=== PATIENT | male | born 1970 | race Caucasian/White ===

== ENCOUNTER 2018-02-14 11:12 | Emergency (ER) | END 2018-02-14 14:00 | disposition home or self-care (01) ==

== ENCOUNTER 2019-02-01 16:03 | Emergency (ER) | payer SELFPAY ==
[~2019-02-01] VITALS: Wt 65.0 kg
[~2019-02-01 16:03] MED LIST: FLUT9.9S NASAL; IBUP-1542 PO
[2019-02-01] MEDS ORDERED: SOD CHLORIDE 0.9% 1,000 ML IV STA (17:48)
--- NOTE | 2019-02-01 18:57 | ERD ---
ER Documentation Chief Complaint Chief Complaint weak, pale, sleepy 'after taking BP med he normally does not take' HPI This is a 48-year old man who is here because he took his girlfriends beta- edna because he thought he might have high blood pressure because she does. He has no prior history of hypertension at all. He said he took the medication and then 20 minutes later he started feeling weak and dizzy. His friend who was with him said that he looked a bit pale while they were in the car together so they went home. He said when they got home the patient threw up once that was nonbilious and nonbloody. The patient here states he feels much better. He had no chest pain no shortness of breath no headache no focal neurological complaints no abdominal pain. ROS All systems reviewed and are negative except as per history of present illness. Medications Home Meds Active Scripts Fluticasone Propionate (Flonase Allergy Relief) 9.9 Ml [place].susp, 1 SPRAY NASAL BID, #1 BOTTLE TO EACH NOSTRIL Prov:IVIS BARBA MD 02/14/18 Ibuprofen* (Motrin*) 600 Mg Tab, 600 MG PO Q6H PRN for PAIN AND OR ELEVATED TEMP, #30 TAB Prov:IVIS BARBA MD 02/14/18 Allergies Allergies: Coded Allergies: amoxicillin (Unverified Allergy, Unknown, HIVES, 02/14/18) clavulanic acid (Unverified Allergy, Unknown, HIVES, 02/14/18) PMhx/Soc History of Surgery: No Anesthesia Reaction: No Hx Neurological Disorder: No Hx Respiratory Disorders: No Hx Cardiac Disorders: Yes (HTN) Hx Psychiatric Problems: No Hx Alcohol Use: No Hx Substance Use: Yes (MARIJUANA) Hx Tobacco Use: No Smoking Status: Never smoker FmHx Family History: No coronary disease Physical Exam Vitals Vital Signs Date Temp Pulse Resp B/P (MAP) Pulse Ox O2 O2 Flow FiO2 Time Delivery Rate 02/01/19 66 15 114/75 100 Room Air 18:35 (88) 02/01/19 58 12 120/83 100 Room Air 17:40 (95) 02/01/19 100 17:40 02/01/19 97.0 70 22 105/54 97 16:12 (71) Physical Exam Const: Well-developed, well-nourished Head: Atraumatic, normocephalic Eyes: Normal Conjunctiva, PERRLA, EOMI, normal sclera, no nystagmus ENT: Normal External Ears, Nose and Mouth, moist mucus membranes. Neck: Full range of motion. No meningismus, no lymphadenopathy. Resp: Clear to auscultation bilaterally, no wheezing, rhonchi, rales Cardio: Bradycardia heart rate 55, no murmurs, S1 S2 present Abd: Soft, non tender x 4, non distended. Normal bowel sounds, no guarding or rebound, no pulsitile abdominal masses or bruits Skin: No petechiae or rashes, no ecchymosis , no maculopapular rash Back: No midline or flank tenderness Ext: No cyanosis, or edema, FROM x 4, normal inspection, neurovascularly intact x 4 Neur: Awake and alert, STR 5/5 x 4, sensation intact x 4, no focal findings, cerebellum intact Psych: Normal Mood and Affect Result Diagram: 02/01/19 1807 02/01/191806 Results 24 hrs Laboratory Tests Test 02/01/19 18:07 White Blood Count 15.9 10^3/ul Red Blood Count 4.46 10^6/ul Hemoglobin 13.8 g/dl Hematocrit 41.8 % Mean Corpuscular Volume 93.7 fl Mean Corpuscular Hemoglobin 30.9 pg Mean Corpuscular Hemoglobin Concent 33.0 g/dl Red Cell Distribution Width 12.5 % Platelet Count 305 10^3/UL Mean Platelet Volume 9.0 fl Immature Granulocytes % 0.600 % Neutrophils % 85.5 % Lymphocytes % 7.2 % Monocytes % 3.5 % Eosinophils % 2.9 % Basophils % 0.3 % Nucleated Red Blood Cells % 0.0 /100WBC Immature Granulocytes # 0.090 10^3/ul Neutrophils # 13.6 10^3/ul Lymphocytes # 1.2 10^3/ul Monocytes # 0.6 10^3/ul Eosinophils # 0.5 10^3/ul Basophils # 0.1 10^3/ul Nucleated Red Blood Cells # 0.0 10^3/ul Sodium Level 139 mmol/L Potassium Level 4.8 mmol/L Chloride Level 101 mmol/L Carbon Dioxide Level 31 mmol/L Anion Gap 7 Blood Urea Nitrogen 25 mg/dl Creatinine 0.90 mg/dl Est Glomerular Filtrat Rate mL/min > 60 mL/min Glucose Level 131 mg/dl Calcium Level 9.5 mg/dl Total Bilirubin 0.2 mg/dl Direct Bilirubin 0.00 mg/dl Indirect Bilirubin 0.2 mg/dl Aspartate Amino Transf (AST/SGOT) 35 IU/L Alanine Aminotransferase (ALT/SGPT) 52 IU/L Alkaline Phosphatase 59 IU/L Troponin I < 0.012 ng/ml Total Protein 6.9 g/dl Albumin 4.2 g/dl Globulin 2.70 g/dl Albumin/Globulin Ratio 1.55 Current Medications Medications Dose Sig/Asya Start Time Status Last (Trade) Ordered Route PRN Stop Time Admin Dose Reason Admin Sodium 1,000 ml @ Q1H STAT 02/01/19 DC 02/01/19 Chloride 1,000 mls/hr IV 17:48 02/01/19 18:12 18:47 Procedures/MDM EKG: Rate/Rhythm: Sinus bradycardia heart rate 52, right axis deviation, early repolarization QRS, ST, QT: NORMAL [place], QRS, QT] Impression: Abnormal EKG Ordering MD: LEWIS SUAREZ DO Location: E/R Room/Bed: PROCEDURE: XR Chest CLINICAL INDICATION: Chest Pain. . TECHNIQUE: Frontal view of the chest COMPARISON: None available FINDINGS: The cardiomediastinal silhouette is within normal limits. No focal pulmonary consolidations. There is no evidence of significant pleural effusion or pneumothorax. No suspicious osseous lesions. IMPRESSION: No radiographic evidence of acute cardiopulmonary disease. RPTAT: HH Puma Myers Physician Date Time Electronically viewed and signed by Puma Myers Physician on 02/01/2019 18:28 HtN/ CC: LEWIS SUAREZ DO [id number] After observation here the patient feels much better his heart rate is climbed into the upper 60s low 70s. His current blood pressure is 114/82. We will finished his liter of fluid which is only one third of the way in and then will discharge home. Patient likely had bradycardia or hypotensive spell after taking the beta- edna. I discussed with him at length not to take medications that he is not supposed to be taking as he can be very dangerous. Departure Diagnosis: Primary Impression: Adverse drug reaction Encounter type: initial encounter Qualified Codes: T50.905A - Adverse effect of unspecified drugs, medicaments and biological substances, initial encounter Condition: Stable LEWIS SUAREZ DO Feb 01, 2019 18:57
[2019-02-01 20:01] VITALS: BP 110/65; PULSE 84; RESP 18
== END 2019-02-01 20:03 | disposition home or self-care (01) ==
LOC: E/R 16:03
DX: R53.1 Weakness (principal); T44.7X5A Adverse effect of beta-adrenoreceptor antagonists, initial encounter; I10 Essential (primary) hypertension
CPT/HCPCS: 36415; 71045; 80053; 84484; 85025; 93005; 99285; J7030